=== PATIENT | female | born 1955 | race Caucasian/White ===

== ENCOUNTER 2016-09-07 06:42 | Day surgery (SDC) | payer OTHER ==
[~2016-09-07 06:42] MED LIST: ANTIVERT25 MG PO; CPAP; EFFEXOR; EFFEXOR XR75 M1 PO; GLUCOPHAGE; GLUCOPHAGE500 M3 PO; METFORMIN HCL500 M2 PO; MILK OF MAGNESIA PO; MOTRIN IB200 M1 PO; NORCO 5-325 TA1 EACH PO; PRINIVIL5 M1 PO; SYNTHROID; SYNTHROID75 MC1 PO; TYLENOL EXTRA500 M1 PO; VESICARE10 M1 PO; VITAMIN D31000 UNI3 PO; Vesicare
== END 2016-09-07 12:25 ==
LOC: SHSB 06:42 → ORW 08:30 → PACU 09:55 → SHSB 10:30
PROC: 0HWT0JZ Revision of Synthetic Substitute in Right Breast, Open Approach (ICD-10-PCS; principal; 2016-09-07)
DX: N65.0 Deformity of reconstructed breast (principal); I10 Essential (primary) hypertension; E11.9 Type 2 diabetes mellitus without complications; E03.9 Hypothyroidism, unspecified; G47.30 Sleep apnea, unspecified; G44.229 Chronic tension-type headache, not intractable; Z79.84 Long term (current) use of oral hypoglycemic drugs; Z79.899 Other long term (current) drug therapy; Z88.1 Allergy status to other antibiotic agents; Z85.3 Personal history of malignant neoplasm of breast; Z87.891 Personal history of nicotine dependence; Z80.3 Family history of malignant neoplasm of breast; Z90.13 Acquired absence of bilateral breasts and nipples; Z90.721 Acquired absence of ovaries, unilateral; Z98.890 Other specified postprocedural states
CPT/HCPCS: C1781; C1789; J0690; J1170; J7030